=== PATIENT | female | born 1960 | race Caucasian/White ===

== ENCOUNTER → 2017-05-25 | Outpatient (CLI) | payer OTHER ==
--- NOTE | 2017-05-28 08:01 | MAMMOGRAPHY REPORT ---
BILATERAL DIGITAL SCREENING MAMMOGRAM TOMOSYNTHESIS WITH CAD: 05/25/2017 CLINICAL HISTORY: Routine screening. Patient has no complaints. TECHNIQUE: Breast tomosynthesis in addition to standard 2D mammography was performed. Current study was also evaluated with a Computer Aided Detection (CAD) system. COMPARISON: Comparison is made to exams dated: 06/11/2015 mammogram - [facility], 06/05/2014 mammogram, 06/04/2013 mammogram, 06/03/2012 mammogram, 06/01/2011 mammogram, and 05/10/2010 mammogram - [facility]. BREAST COMPOSITION: There are scattered areas of fibroglandular density in both breasts. FINDINGS: There is a subtle 2.1 cm asymmetry within the right lateral posterior breast, for which spo t compression tomosynthesis views and possible breast ultrasound are recommended for further evaluati on. The remainder of both breasts are stable compared to prior exams, without suspicious masses, calcific ations, or areas of architectural distortion noted. Scattered bilateral benign-appearing calcificati ons are not significantly changed. A benign intramammary lymph node is again seen within the right s uperior breast. IMPRESSION: ACR BI-RADS CATEGORY 0: INCOMPLETE EVALUATION: NEED ADDITIONAL IMAGING EVALUATION Right breast asymmetry, for which additional imaging evaluation is recommended. The patient will be called to schedule an appointment. Approximately 10% of breast cancers are not detected with mammography. A negative mammographic report should not delay biopsy if a clinically suggestive mass is present. Fany Ruiz M.D. ah/:05/26/2017 10:43:38 Hotel Superintendent: Qi TUCKER(Diane)([place]), [facility] letter sent: Addl Imaging 0 BI-RADS Code: ACR BI-RADS Category 0: Incomplete Evaluation: Need Additional Imaging Evaluation
== END | disposition home or self-care (01) ==
LOC: C.MAMM 07:12
PROVIDERS: ATTEND Obstetrics & Gynecology
DX: Z12.31 Encounter for screening mammogram for malignant neoplasm of breast (principal); N64.89 Other specified disorders of breast

== ENCOUNTER → 2017-05-31 | Outpatient (CLI) | payer OTHER | END | disposition home or self-care (01) | LOC: C.PAPS 13:38 | PROVIDERS: ATTEND Obstetrics & Gynecology | DX: Z12.4 Encounter for screening for malignant neoplasm of cervix (principal) ==

== ENCOUNTER → 2017-06-01 | Outpatient (CLI) | payer OTHER ==
--- NOTE | 2017-06-01 14:14 | MAMMOGRAPHY REPORT ---
UNILATERAL RIGHT DIGITAL DIAGNOSTIC MAMMOGRAM TOMOSYNTHESIS AND TARGETED RIGHT ULTRASOUND: 06/01/2017 CLINICAL HISTORY: Callback from screening mammogram for right breast asymmetry. TECHNIQUE: Breast tomosynthesis in addition to standard 2D mammography was performed. Spot compress ion right CC and MLO 2-D and tomosynthesis images were obtained. COMPARISON: Comparison is made to exams dated: 05/25/2017 mammogram, 06/11/2015 mammogram - [facility], 06/05/2014 mammogram, 06/04/2013 mammogram, 06/03/2012 mammogram, and 06/01/2011 mammogram - [facility]. BREAST COMPOSITION: There are scattered areas of fibroglandular density in the right breast. FINDINGS: Spot compression views of the right breast demonstrate a subtle ill-defined focal asymmetr y in the right lower outer quadrant, measuring approximately 3.6 cm on the cc tomosynthesis images. The asymmetry was not clearly evident on prior exams. No discrete mass or architectural distortion i s noted in this region. Targeted ultrasound was performed of the right lower outer quadrant in the region of the mammographic asymmetry. No suspicious masses or other suspicious sonographic abnormalities are evident. In the right 7 to 8:00 breast, centered around 2 cm from the nipple, there is ill-defined mixed echogenicity tissue which has the appearance of fibroglandular tissue on ultrasound. This likely corresponds wit h the mammographic asymmetry. This could represent benign tissue versus pseudo-angiomatous stromal h yperplasia (PASH). However, given that the asymmetry is new, it is indeterminate at this time. Ther efore, recommend ultrasound guided core needle biopsy for further evaluation. IMPRESSION: ACR BI-RADS CATEGORY 4: SUSPICIOUS, TARGETED ULTRASOUND ACR BI-RADS CATEGORY 4: SUSPICIO US New ill-defined focal asymmetry in the right lower outer quadrant mammographically, with correspondin g mixed echogenicity tissue seen in the right 7 to 8:00 breast on ultrasound. While this may represe nt benign breast tissue or pseudo-angiomatous stromal hyperplasia (PASH), it is indeterminant and ult rasound guided core needle biopsy is recommended for further evaluation. A phone call was made to the physician's office to confirm faxed results were received. The patient has been verbally notified of the results. She tentatively scheduled the biopsy before leaving the [facility]. Approximately 10% of breast cancers are not detected with mammography. A negative mammographic report should not delay biopsy if a clinically suggestive mass is present. Fany Ruiz M.D. ah/:06/01/2017 09:47:57 Sustainability Specialist: Alaina ROBLEDO (R)), [facility] letter sent: Abnormal 4/5 BI-RADS Code: ACR BI-RADS Category 4: Suspicious Ultrasound BI-RADS: ACR BI-RADS Category 4: Suspici ous
== END | disposition home or self-care (01) ==
LOC: C.MAMM 09:16
PROVIDERS: ATTEND Obstetrics & Gynecology
DX: N64.89 Other specified disorders of breast (principal)

== ENCOUNTER → 2017-06-13 | Outpatient (CLI) | payer OTHER ==
--- NOTE | 2017-06-13 08:11 | Discharge Instructions ---
Discharge Instructions Procedure Procedure Date: Jun 13, 2017. Reason for visit: Right Asymmetry. Discharge Discharge Date: Jun 13, 2017. Discharge Diagnosis: status post breast biopsy Instructions Activity Recommendations: Additional Limitations (see below) Return to School/Work: no limitations Recommended Home Diet: No Limitations Provider Instructions: ACTIVITY RECOMMENDATIONS: * No lifting, pushing, pulling or exercising the affected side for three days. RETURN TO SCHOOL/WORK: * You may return to work/school after the procedure, but do not perform any strenuous activities for 24 to 48 hours. MEDICATIONS: * Tylenol (two 325 mg) every four to six hours if needed for mild pain (if not allergic to Tylenol). DIET: * Resume previous diet. SPECIAL CARE INSTRUCTIONS: * Keep biopsy site dry for 24 hours. May shower after 24 hours, but do not soak (bathe) incision. * May remove Tegaderm (plastic patch) tomorrow AFTER showering. * Leave the steri-strips on for one week. Allow the steri-strips to fall off by themselves. If not off after one week, you may remove them. You may place a Bandaid crosswise over the strips, if desired. * Apply ice 10 minutes on and 10 minutes off as needed. * Wear a bra at bedtime to sleep more comfortably for 2-3 days. * Your referring physician should have the results after approximately 5 to 7 business days. * Call for unusual bleeding, fever, drainage, etc or if you have any questions call during normal business hours or after hours call Dr Ruiz, . FOLLOW UP VISIT: Follow-up with Referring Physician as scheduled. Allergies Uncoded Allergies: N (Allergy, Unknown, 10/02/02) NKA (Allergy, Unknown, 10/02/02) Geovani Craig Recommendations: Call your doctor if: * Temperature above 101 degrees * Pain not relieved by pain medicine ordered * There is increased drainage or redness from any incision * You have any unanswered questions or concerns. Your Doctors Instructions noted above were prepared by provider Fany Ruiz. Patient Signature Section: Patient Instructions Signature Page Janeen Berumen Patient (or Guardian) Signature/Date: I have read and understand the instructions given to me by my caregivers. Caregiver/RN/Doctor Signature/Date: The above-named patient and/or guardian has received patient instructions on this date. + Original Patient Signature Page (only) stays with chart. Please make copy for patient.
--- NOTE | 2017-06-13 14:23 | MAMMOGRAPHY REPORT ---
ULTRASOUND GUIDED BIOPSY RIGHT BREAST: 06/13/2017 CLINICAL HISTORY: Mixed echogenicity tissue in the right 7 to 8:00 breast, thought to correlate with a mammographic asymmetry. PATIENT CONSENT: The procedure, risks and benefits were discussed with the patient and informed writt en consent was obtained. A timeout was performed immediately prior to the procedure. PROCEDURE DESCRIPTION: With ultrasound guidance, aseptic technique, and lidocaine as the local anesth etic (1% lidocaine to anesthetize the skin and 1% lidocaine with epinephrine to anesthetize the deepe r tissues), the mixed echogenicity tissue in the right 7:00 breast was sampled 4 times with a 14-gaug e Achieve biopsy needle. Immediately thereafter, with ultrasound guidance, aseptic technique, and li docaine as the local anesthetic, a metallic localizer clip was placed at the biopsy site. Direct pre ssure was applied to the site immediately post procedure and hemostasis was achieved. Postprocedure unilateral mammograms were performed to confirm clip placement. The patient tolerated the procedure without complication. She was given wound care instructions. The specimens were sent to pathology fo r analysis. COMPARISON: Comparison is made to exams dated: 06/01/2017 ultrasound, 06/01/2017 mammogram, 7 mammogram - [facility], and 06/05/2014 mammogram - [facility]. IMPRESSION: ULTRASOUND GUIDED BIOPSY Ultrasound-guided core needle biopsy of the mixed echogenicity tissue in the right 7:00 breast, with clip placement. The patient will receive pathology results from her referring provider. Fany Ruiz M.D. ah/:06/13/2017 08:12:58 Cooker Mechanic: Alaina TUCKER(R)([place]), [facility]
--- NOTE | 2017-06-13 14:26 | MAMMOGRAPHY REPORT ---
UNILATERAL RIGHT DIGITAL DIAGNOSTIC MAMMOGRAM TOMOSYNTHESIS: 06/13/2017 CLINICAL HISTORY: Status post right breast biopsy. TECHNIQUE: Breast tomosynthesis in addition to standard 2D mammography was performed. Postprocedura l right CC and ML tomosynthesis images including C views were obtained. COMPARISON: Comparison is made to exams dated: 06/01/2017 ultrasound, 06/01/2017 mammogram, 7 mammogram, 06/11/2015 mammogram - [facility], 06/05/2014 mammogram, and 3 mammogram - [facility]. BREAST COMPOSITION: There are scattered areas of fibroglandular density in the right breast. FINDINGS: A new biopsy marker clip is seen in the right lower outer quadrant status post ultrasound- guided biopsy of the mixed echogenicity tissue in the right 7:00 breast. The clip is located at the site of the original mammographic asymmetry, indicating good correlation between the biopsied sonogra phic finding and the mammographic asymmetry. No significant postbiopsy hematoma is seen. IMPRESSION: POST PROCEDURE IMAGING FOR MARKER PLACEMENT New biopsy marker clip status post right breast ultrasound guided biopsy. Pathology results are pend ing. Approximately 10% of breast cancers are not detected with mammography. A negative mammographic report should not delay biopsy if a clinically suggestive mass is present. Fany Ruiz M.D. ah/:06/13/2017 08:18:37 Lead Applications Developer: Alaina AVITIA)([place]), [facility] BI-RADS Code: Post Procedure Imaging For Marker Placement
== END | disposition home or self-care (01) ==
LOC: C.MAMM 07:49
PROVIDERS: ATTEND Obstetrics & Gynecology
DX: R92.8 Other abnormal and inconclusive findings on diagnostic imaging of breast (principal)